=== PATIENT | female | born 1980 | race Caucasian/White ===

== ENCOUNTER → 2022-04-22 | Outpatient (CLI) | payer OTHER ==
[2022-04-22 15:31] LABS: HEMATOCRIT 40.8 % (36.0-47.0); HEMOGLOBIN 13.6 g/dl (12.0-15.5); MEAN CORPUSCULAR HEMOGLOBIN 29.4 pg (27.0-33.0); MEAN CORPUSCULAR HGB CONC 33.3 g/dl (32.0-36.5); MEAN CORPUSCULAR VOLUME 88.1 fl (80.0-96.0); PLATELET COUNT, AUTOMATED 250 10^3/uL (150-450); RED BLOOD COUNT 4.63 10^6/uL (4.00-5.40); WHITE BLOOD COUNT 5.9 10^3/uL (4.0-10.0)
[2022-04-22 15:57] LABS: INR 0.85; PROTHROMBIN TIME 11.8 SECONDS (12.5-14.5)
[2022-04-22 16:15] LABS: ALBUMIN 3.7 GM/DL (3.2-5.2); ALT/SGPT 39 U/L (12-78); BILIRUBIN,TOTAL 0.4 MG/DL (0.2-1.0); BLOOD UREA NITROGEN 16 MG/DL (7-18); CALCIUM LEVEL 8.8 MG/DL (8.5-10.1); CARBON DIOXIDE LEVEL 30 MEQ/L (21-32); CHLORIDE LEVEL 105 MEQ/L (98-107); CREATININE FOR GFR 0.99 MG/DL (0.55-1.30); GLOMERULAR FILTRATION RATE > 60.0 (>58); GLUCOSE, FASTING 77 MG/DL (70-100); POTASSIUM SERUM 4.3 MEQ/L (3.5-5.1); SODIUM LEVEL 139 MEQ/L (136-145); TOTAL PROTEIN 6.9 GM/DL (6.4-8.2)
[2022-04-22 16:37] LABS: HCG, SERUM QUALITATIVE NEGATIVE (NEGATIVE)
[2022-04-22 19:15] LABS: HEPATITIS B SURFACE ANTIBODY NEGATIVE (POSITIVE)
[2022-04-22 19:55] LABS: HIV 1&2 SCREEN CENTAUR NEGATIVE (NEGATIVE)
[2022-04-26 23:16] LABS: HCV RNA (INTERNATIONAL UNITS) 21900000 IU/mL (.); HEPATITIS C QUANTITATION See Final Results IU/mL (.); HEPATITIS C VIRUS GENOTYPE 1a (.)
[2022-04-27 04:07] LABS: HEPATITIS A IgG TOTAL Positive (Negative)
== END ==
LOC: M LAB 14:08
PROVIDERS: ATTEND Nurse Practitioner Family
DX: B18.2 Chronic viral hepatitis C (principal)